=== PATIENT | female | born 1940 | race Caucasian/White ===

== ENCOUNTER 2017-09-12 11:16 | Emergency (ER) | payer OTHER ==
[~2017-09-12] VITALS: Ht 162.6 cm; Wt 72.6 kg
[~2017-09-12 11:16] MED LIST: ALIGN4 MG PO; ALLERGY RELIEF10 M3 PO; ASPIRIN325; AZITHROMYCIN 2250 MG PO; BREO ELLIPTA 11 EACH IH; CLARITIN10 M2 PO; DEXILANT60 MG PO; DILTIAZEM ER120 M1 PO; FORADIL 1212 MCG/KI1 INH; HYDROCHLOROTHIA25 M1 PO; LEVAQUIN 500 M500 M2 PO; MEDROLDOSEPACK PO; OMEPRAZOLE 20 M20 MG PO; PEPCID20 MG PO; PREDNISONE 10 M10 MG PO; PREDNISONE50 MG PO; PROTONIX40 M1 PO; SPIRIVA; VENTOLIN HFA 1818 GM INH
[2017-09-12] MEDS ORDERED: SINGULAIR 10 MG10 M1 PO (11:32)
[2017-09-12] MEDS ORDERED: OMEPRAZOLE 20 M20 MG PO (11:32)
[2017-09-12 12:03] LABS: ABSOLUTE BASOPHILS 0.1 thou/uL (0.0-0.2); ABSOLUTE MONOCYTES 0.8 thou/uL (0.0-1.2); ABSOLUTE NEUTROPHILS 7.7 thou/uL (1.6-8.1); BASOPHILS 1.1 %; EOSINOPHILS 0.5 %; HEMOGLOBIN 13.2 gm/dL (12.0-15.0); LYMPHOCYTES 10.6 %; MCH 28.1 pg (26.0-34.0); MCV 85.4 fL (80.0-100.0); MONOCYTES 7.9 %; NUCLEATED RBCS 0 /100WBC; PLATELET COUNT* 248 thou/uL (150-400); POLYS 79.9 %; RBC 4.68 mil/uL (4.20-5.00); RDW-CV 15.1 % (10.5-14.5); WBC 9.6 thou/uL (4.0-11.0)
[2017-09-12 12:10] LABS: ANION GAP 8 mmol/L (7-16); BUN 6 mg/dL (7-18); CALCIUM 8.6 mg/dL (8.5-10.1); CHLORIDE 102 mmol/L (98-107); CO2 28 mmol/L (21-32); CREATININE 0.8 mg/dL (0.6-1.3); GLUCOSE 136 mg/dL (70-99); SODIUM 138 mmol/L (136-145)
[2017-09-12 12:12] LABS: INFLUENZA A ANTIGEN None Detected (None Detect); INFLUENZA B ANTIGEN None Detected (None Detect)
[2017-09-12 12:16] LABS: ALKALINE PHOSPHATASE 150 U/L (46-116); LIPASE 64 U/L (73-393); SGOT 22 U/L (15-37); SGPT 27 U/L (30-65); TOTAL BILIRUBIN 0.6 mg/dL (<0.1-1.0); TROPONIN-I LEVEL <0.06 ng/mL (<0.06)
[2017-09-12] MEDS ORDERED: ZPAK PO (14:52)
[2017-09-12] MEDS ORDERED: PHENERGAN 25 MG25 M1 PO (14:57)
[2017-09-12 15:01] VITALS: BP 126/77
--- NOTE | 2017-09-12 15:26 | EKG ---
[place] [address] ELECTROCARDIOGRAM REPORT Name: MARIA R KEITA Room: [facility]#: [id number] Admission: 09/12/17 Attend Phys: Discharge: 09/12/17 Date of : 42 Report #: [id number] THIS REPORT FOR: //name// [facility] ED Test Date: 2017-09-12 Test Time: 11:53:12 Pat Name: MARIA R KEITA Department: Room: Gender: F Pulper: BRENDA Fabian : 1940 Requested By: La Nena Keane Order Number: [id number] MD: Dean Herndon Measurements Intervals [place] Rate: 104 P: 101 NV: 205 QRS: -7 QRSD: 127 T: 99 QT: 360 QTc: 474 Interpretive Statements Sinus tachycardia with irregular rate previous anterior infarction nonspecific intraventricular conduction defect nonspecific t wave changes Compared to ECG 04/22/2014 21:09:07 Ventricular premature complex(es) no longer present Electronically Signed On 09-12-2017 15:26:35 APARTMENT MANAGER by Dean Herndon [email or web address] <ELECTRONICALLY SIGNED> By: Dean Herndon MD, [facility] 09/12/17 1526 1153 1153 Dean Herndon MD, [facility] /EPI
== END 2017-09-12 15:02 | disposition home or self-care (01) ==
LOC: M.ERS 11:16
PROVIDERS: Nurse Practitioner Family
DX: R19.7 Diarrhea, unspecified (principal); J06.9 Acute upper respiratory infection, unspecified; B34.9 Viral infection, unspecified; K21.9 Gastro-esophageal reflux disease without esophagitis; J44.9 Chronic obstructive pulmonary disease, unspecified; Z90.49 Acquired absence of other specified parts of digestive tract; Z98.890 Other specified postprocedural states; Z91.041 Radiographic dye allergy status; Z88.8 Allergy status to other drugs, medicaments and biological substances

== ENCOUNTER → 2018-09-12 | Outpatient (CLI) | payer OTHER ==
[~2018-09-12] MED LIST changes: +BREO ELLIPTA 21 EACH INH; +DALIRESP250 MCG PO; +IPRAT-ALBUT 0.5-3 ML INH; +IRON325 PO; +PHENERGAN 25 MG25 M1 PO; +PLAVIX 75 MG TA75 M1 PO; +PULMICORT0.5 MG/22 INH; +SINGULAIR 10 MG10 M1 PO; +SYMBICORT160 MCG/4. INH; +VERAPAMIL E.R240 M1 PO; +ZETIA10 MG PO; +ZPAK PO
[2018-09-12 12:12] LABS: ABSOLUTE BASOPHILS 0.1 thou/uL (0.0-0.2); ABSOLUTE LYMPHOCYTES 1.2 thou/uL (0.8-5.3); ABSOLUTE MONOCYTES 0.4 thou/uL (0.0-1.2); ABSOLUTE NEUTROPHILS 6.3 thou/uL (1.6-8.1); BASOPHILS 1.2 %; EOSINOPHILS 0.5 %; HEMATOCRIT 37.1 % (37.0-47.0); HEMOGLOBIN 11.4 gm/dL (12.0-15.0); LYMPHOCYTES 15.1 %; MCH 23.1 pg (26.0-34.0); MCHC 30.7 g/dL (28.0-37.0); MCV 75.3 fL (80.0-100.0); MONOCYTES 5.5 %; MPV 7.1 fl. (7.2-11.1); NUCLEATED RBCS 0 /100WBC; PLATELET COUNT* 461 thou/uL (150-400); POLYS 77.7 %; RBC 4.92 mil/uL (4.20-5.00); RDW-CV 30.3 % (10.5-14.5); WBC 8.1 thou/uL (4.0-11.0)
[2018-09-12 12:45] LABS: PLATELET ESTIMATE INCREASED
[2018-09-12 12:49] LABS: ANISOCYTOSIS 1+; HYPOCHROMASIA 1+; MICROCYTES Occasional; POIKILOCYTOSIS 1+
== END ==
LOC: M.LAB 11:42
PROVIDERS: Internal Medicine Gastroenterology
DX: D64.9 Anemia, unspecified (principal)

== ENCOUNTER 2018-09-16 12:48 | Inpatient (IN) | payer OTHER ==
[~2018-09-16] VITALS: Ht 160 cm; Wt 72.6 kg
--- NOTE | ~2018-09-16 | PROC ---
[address] [address] PROCEDURE REPORT Name: MARIA R KEITA Room: [address] IN .R.#: [id number] Admission: 09/16/18 Attend Phys: Ancelmo Starkey MD Discharge: 09/19/18 Date of : 42 Report #: [id number] THIS REPORT FOR: //name// For GI report, please see the Provation report in Perceptive 7 content. By: 0648Medical Records Staff DANNIE /ANT
[~2018-09-16 12:48] MED LIST changes: -BREO ELLIPTA 21 EACH INH; -DALIRESP250 MCG PO; -IPRAT-ALBUT 0.5-3 ML INH; -IRON325 PO; +OMEPRAZOLE 20 M20 M1 PO; -PLAVIX 75 MG TA75 M1 PO; -PULMICORT0.5 MG/22 INH; -SYMBICORT160 MCG/4. INH; -VERAPAMIL E.R240 M1 PO; -ZETIA10 MG PO
[2018-09-16 12:51] VITALS: BP 91/56
[2018-09-16] MEDS ORDERED: BREO ELLIPTA 21 EACH INH (12:56)
[2018-09-16] MEDS ORDERED: SYMBICORT160 MCG/4. INH (12:57)
[2018-09-16] MEDS ORDERED: IRON325 PO (12:58)
[2018-09-16] MEDS ORDERED: DALIRESP250 MCG PO (12:58)
[2018-09-16] MEDS ORDERED: ZETIA10 MG PO (12:58)
[2018-09-16] MEDS ORDERED: PLAVIX 75 MG TA75 M1 PO (12:58)
[2018-09-16] MEDS ORDERED: IPRAT-ALBUT 0.5-3 ML INH (12:59)
[2018-09-16] MEDS ORDERED: PULMICORT0.5 MG/22 INH (12:59)
[2018-09-16 13:11] LABS: HEMATOCRIT 39.1 % (37.0-47.0); HEMOGLOBIN 11.9 gm/dL (12.0-15.0); MCH 23.7 pg (26.0-34.0); MCHC 30.6 g/dL (28.0-37.0); MCV 77.4 fL (80.0-100.0); MPV 7.5 fl. (7.2-11.1); NUCLEATED RBCS 0 /100WBC; PLATELET COUNT* 420 thou/uL (150-400); RBC 5.05 mil/uL (4.20-5.00); RDW-CV 31.2 % (10.5-14.5); WBC 9.8 thou/uL (4.0-11.0)
[2018-09-16 13:21] LABS: APTT 24.6 Seconds (25.0-31.3); PROTIME 10.7 Seconds (9.20-11.50)
[2018-09-16 13:25] LABS: ANION GAP 11 mmol/L (7-16); BUN 13 mg/dL (7-18); CHLORIDE 103 mmol/L (98-107); CO2 27 mmol/L (21-32); GLUCOSE 117 mg/dL (70-99); POTASSIUM 3.6 mmol/L (3.5-5.1); SODIUM 141 mmol/L (136-145); TROPONIN-I LEVEL <0.06 ng/mL (<0.06)
[2018-09-16 13:33] LABS: ALBUMIN 3.2 g/dL (3.4-5.0); ALKALINE PHOSPHATASE 149 U/L (46-116); NT-PRO BRAIN NAT PEPTIDE 481 pg/mL (<300); SGOT 38 U/L (15-37); SGPT 29 U/L (30-65); TOTAL BILIRUBIN 0.2 mg/dL (<0.1-1.0); TOTAL PROTEIN 7.4 g/dL (6.4-8.2)
[2018-09-16 13:39] LABS: ABSOLUTE BASOPHILS 0.2 thou/uL (0.0-0.2); ABSOLUTE LYMPHOCYTES 1.2 thou/uL (0.8-5.3); ABSOLUTE MONOCYTES 0.2 thou/uL (0.0-1.2); ABSOLUTE NEUTROPHILS 8.2 thou/uL (1.6-8.1); PLATELET ESTIMATE ADEQUATE
[2018-09-16 13:40] LABS: ANISOCYTOSIS 2+; HYPOCHROMASIA 1+; MICROCYTES 2+
--- NOTE | 2018-09-16 15:17 | EKG ---
[place] [address] ELECTROCARDIOGRAM REPORT Name: MARIA R KEITA Room: [facility]#: [id number] Admission: 09/16/18 Attend Phys: Discharge: Date of : 42 Report #: [id number] THIS REPORT FOR: //name// [facility] Test Date: 2018-09-16 Test Time: 12:58:10 Pat Name: MARIA R KEITA Department: Room: Gender: F Adjuster Arbitrator: : 1940 Requested By: Ambrose Allen Order Number: [id number] MD: Dean Herndon Measurements Intervals [place] Rate: 87 P: 84 VT: 183 QRS: -11 QRSD: 138 T: 109 QT: 422 QTc: 508 Interpretive Statements Sinus rhythm Left bundle branch block Baseline wander in lead(s) II,III,aVF Compared to ECG 09/12/2017 11:53:12 Sinus tachycardia no longer present Electronically Signed On 09-16-2018 15:17:16 CDT by Dean Herndon [email or web address] <ELECTRONICALLY SIGNED> By: Dean Herndon MD, [facility] 09/16/18 1517 1258 1258 Dean Herndon MD, [facility] /EPI
[2018-09-16 20:19] VITALS: BP 174/51
[2018-09-16 20:47] VITALS: BP 158/62
[2018-09-17] VITALS: BP 129/46
[2018-09-17 04:00] VITALS: BP 115/49
[2018-09-17 05:02] LABS: ABSOLUTE BASOPHILS 0.1 thou/uL (0.0-0.2); ABSOLUTE EOSINOPHILS 0.2 thou/uL (0.0-0.7); ABSOLUTE LYMPHOCYTES 1.5 thou/uL (0.8-5.3); ABSOLUTE MONOCYTES 0.5 thou/uL (0.0-1.2); ABSOLUTE NEUTROPHILS 3.4 thou/uL (1.6-8.1); HEMOGLOBIN 10.4 gm/dL (12.0-15.0); LYMPHOCYTES 26.4 %; MCH 24.2 pg (26.0-34.0); MCHC 31.7 g/dL (28.0-37.0); MCV 76.3 fL (80.0-100.0); MONOCYTES 9.1 %; MPV 7.4 fl. (7.2-11.1); NUCLEATED RBCS 0 /100WBC; POLYS 60.5 %; RBC 4.32 mil/uL (4.20-5.00); WBC 5.6 thou/uL (4.0-11.0)
[2018-09-17 05:29] LABS: PLATELET COUNT* 341 thou/uL (150-400)
[2018-09-17 05:46] LABS: CALCIUM 8.2 mg/dL (8.5-10.1); CREATININE 0.8 mg/dL (0.6-1.3); POTASSIUM 4.1 mmol/L (3.5-5.1)
[2018-09-17 07:21] LABS: HYPOCHROMASIA 1+; MICROCYTES 1+; PLATELET ESTIMATE ADEQUATE
[2018-09-17 07:22] LABS: ANISOCYTOSIS 1+; POIKILOCYTOSIS 1+; TARGET CELLS Occasional
[2018-09-17 07:46] VITALS: BP 127/50
[2018-09-17 12:23] VITALS: BP 138/55
[2018-09-17 17:08] VITALS: BP 114/80
[2018-09-17] MEDS ORDERED: VERAPAMIL E.R240 M1 PO (18:26)
[2018-09-17 19:30] VITALS: BP 144/60
[2018-09-18] VITALS (9 sets, daily range): BP systolic 113–154; BP diastolic 54–88
[2018-09-18 05:28] LABS: MCH 23.9 pg (26.0-34.0); MPV 7.6 fl. (7.2-11.1); NUCLEATED RBCS 0 /100WBC; WBC 5.2 thou/uL (4.0-11.0)
[2018-09-18 05:30] LABS: ABSOLUTE EOSINOPHILS 0.2 thou/uL (0.0-0.7); ABSOLUTE LYMPHOCYTES 1.5 thou/uL (0.8-5.3); ABSOLUTE MONOCYTES 0.5 thou/uL (0.0-1.2); BASOPHILS 0.7 %; HEMATOCRIT 32.1 % (37.0-47.0); LYMPHOCYTES 28.1 %; MCV 77.1 fL (80.0-100.0); MONOCYTES 8.8 %; PLATELET COUNT* 343 thou/uL (150-400); POLYS 58.4 %; RBC 4.16 mil/uL (4.20-5.00); RDW-CV 30.7 % (10.5-14.5)
[2018-09-18 06:01] LABS: PLATELET ESTIMATE ADEQUATE
[2018-09-18 06:02] LABS: ANISOCYTOSIS 1+; HYPOCHROMASIA 1+; MICROCYTES 1+; POIKILOCYTOSIS 1+
[2018-09-18 06:09] LABS: ALBUMIN 2.6 g/dL (3.4-5.0); CALCIUM 8.5 mg/dL (8.5-10.1); CREATININE 0.7 mg/dL (0.6-1.3); POTASSIUM 3.5 mmol/L (3.5-5.1); TOTAL BILIRUBIN 0.2 mg/dL (<0.1-1.0)
--- NOTE | 2018-09-18 18:08 | CON ---
[address] [address] CONSULTATION Name: MARIA R KEITA Room: [address] IN .R.#: [id number] Admission: 09/16/18 Attend Phys: Ancelmo Starkey MD Discharge: Date of : 41 Report #: [id number] THIS REPORT FOR: //name// CC: Ancelmo Love HISTORY OF PRESENT ILLNESS: This is a pleasant 78-year-old female with past medical history significant for peripheral vascular disease and subclavian stenosis, who is presenting for evaluation of left arm pain. The patient reports that she noted acute onset left arm pain and associated nausea and abdominal distention. The patient reports the pain started in the shoulder and radiates outwards, towards the head. The patient also reports intermittent shortness of breath and chest discomfort. The patient has a history of known subclavian stenosis with stent placement in 04/2018. She was evaluated as an outpatient for intermittent melena and an EGD was performed last week. The patient was recommended to undergo a colonoscopy for which she is scheduled as an outpatient on this , 09/19/2018. The patient continues to report intermittent dark stools, although she denies any theresa hematemesis or hematochezia. The patient's weight has been relatively stable. PAST MEDICAL HISTORY: Peripheral vascular disease, hypertension, hyperlipidemia, and iron deficiency anemia. PAST SURGICAL HISTORY: The patient has a history of cholecystectomy, hysterectomy, right elbow surgery and left subclavian stent placement. FAMILY HISTORY: There is no significant family history of colonic or gastric malignancies. SOCIAL HISTORY: The patient denies smoking, alcohol or recreational drug use. REVIEW OF SYSTEMS: A comprehensive 10-point review of systems is negative except for what was mentioned in the HPI. PHYSICAL EXAMINATION: VITAL SIGNS: Temperature 36.7, pulse rate 97, respirations 18, blood pressure of 114/80. GENERAL: The patient is alert, awake, oriented x 3. HEENT: Pupils are equal, round, reactive to light and accommodation. Mucous membranes are moist. There is no congestion. LUNGS: Clear to auscultation bilaterally. CARDIOVASCULAR: Rate and rhythm regular, S1, S2 present. ABDOMEN: Soft. There is no distention, guarding or rigidity. EXTREMITIES: Warm, well perfused. LABORATORY DATA: Hemoglobin 10.4, hematocrit 33.0, MCV 76.3, platelet count 341, WBC count 5.6. Sodium 142, potassium 4.1, chloride 109, bicarbonate 28, [place] [address] CONSULTATION Name: MARIA R KEITA Room: [address]#: [id number] Admission: 09/16/18 Attend Phys: Ancelmo Starkey MD Discharge: Date of : 41 Report #: [id number] BUN 15, creatinine 0.8. INR 1.0. ASSESSMENT AND PLAN: A pleasant 78-year-old female with past medical history significant for subclavian stenosis status post stenting, on Plavix, who presented initially for outpatient evaluation of melena. The patient had an EGD performed last week and this was unremarkable and therefore, a colonoscopy was recommended. The patient is originally scheduled to have colonoscopy this as outpatient by Dr. Harry. However, since the patient is currently admitted, I will proceed with prepping her and performing a colonoscopy tomorrow. Further recommendations will be based on the results of the colonoscopy. If the colonoscopy is negative, an outpatient capsule endoscopy will be considered for further evaluation of her melena and iron deficiency anemia. <ELECTRONICALLY SIGNED> By: Alberto Frances MD 09/18/18 1808 1918 [id number] Frances MD /nt
[2018-09-19 04:00] VITALS: BP 96/50
[2018-09-19 04:49] LABS: ABSOLUTE BASOPHILS 0.1 thou/uL (0.0-0.2); ABSOLUTE EOSINOPHILS 0.4 thou/uL (0.0-0.7); ABSOLUTE LYMPHOCYTES 1.4 thou/uL (0.8-5.3); ABSOLUTE MONOCYTES 0.6 thou/uL (0.0-1.2); ABSOLUTE NEUTROPHILS 3.6 thou/uL (1.6-8.1); HEMATOCRIT 32.8 % (37.0-47.0); HEMOGLOBIN 10.3 gm/dL (12.0-15.0); LYMPHOCYTES 23.9 %; MCH 24.2 pg (26.0-34.0); MCHC 31.5 g/dL (28.0-37.0); MCV 76.8 fL (80.0-100.0); MONOCYTES 9.3 %; MPV 7.6 fl. (7.2-11.1); NUCLEATED RBCS 0 /100WBC; PLATELET COUNT* 321 thou/uL (150-400); POLYS 59.8 %; RBC 4.27 mil/uL (4.20-5.00); RDW-CV 30.8 % (10.5-14.5)
[2018-09-19 05:04] LABS: CALCIUM 8.6 mg/dL (8.5-10.1); CREATININE 0.6 mg/dL (0.6-1.3); POTASSIUM 3.2 mmol/L (3.5-5.1)
[2018-09-19 05:57] LABS: PLATELET ESTIMATE ADEQUATE
[2018-09-19 05:58] LABS: MICROCYTES 1+
[2018-09-19 05:59] LABS: ANISOCYTOSIS 1+; HYPOCHROMASIA 1+; POIKILOCYTOSIS 1+; POLYCHROMASIA Occasional
[2018-09-19 08:35] VITALS: BP 127/67
[2018-09-19 10:01] VITALS: BP 127/67
[2018-09-19 11:29] VITALS: BP 123/90
--- NOTE | 2018-09-20 13:23 | CON ---
[address] [address] CONSULTATION Name: MARIA R KEITA Room: [address] IN .R.#: [id number] Admission: 09/16/18 Attend Phys: Ancelmo Starkey MD Discharge: 09/19/18 Date of : 42 Report #: [id number] THIS REPORT FOR: //name// CC: Ancelmo Love DO DATE OF SERVICE: 09/18/2018 TYPE OF REPORT: Cardiology consultation. HISTORY OF PRESENT ILLNESS: The patient is a 78-year-old white female who I was asked to see in the hospital today after she had an episode of atrial fibrillation. History was obtained from the patient and her who is present. The patient has an extensive past medical history. Unfortunately, minimum records are available. She had a previous history of an irregular heartbeat in 2011 and apparently underwent radiofrequency ablation at [facility]. She has been followed by a ethylene compressor operator at [facility] since that time. Previous heart catheterization apparently showed no significant coronary artery disease. She apparently had an episode of atrial fibrillation in January and was placed on verapamil. She apparently had a stress test at that time and was told there was no evidence of ischemia. Recently, she was noted to be anemic. She had an EGD last week that showed no significant bleeding. She underwent a colonoscopy earlier today showed no significant bleeding. In April, she was found to have left subclavian stenosis and had a stent placed in her left arm. The patient notes that she was admitted to [facility] 2 days ago after she complained of left arm was hurting. She is found to have only mild stenosis of the stent. Last night, she was lying in bed. She apparently went in atrial fibrillation, developed some chest tightness and shortness of breath. She converted to sinus rhythm. I was asked to see her for further evaluation and treatment. She is not very active and notes some exertional dyspnea, but no significant palpitation or syncope. PAST MEDICAL HISTORY: She has had a previous cholecystectomy, appendectomy and hysterectomy. She has a history of hypertension and hyperlipidemia. MEDICATIONS: Consists of omeprazole, loratadine, Symbicort, Ventolin, Plavix, Zetia, verapamil, iron supplements and albuterol inhaler. She has previous intolerance to Cardizem, Bystolic, Lipitor, lidocaine, losartan and diltiazem. FAMILY HISTORY: Her mother and she is only 39. SOCIAL HISTORY: She is . She and her live in [place]. Quit smoking in 2004. No alcohol abuse. REVIEW OF SYSTEMS: She had no history of stroke. She [place] [address] CONSULTATION Name: MARIA R KEITA Room: [address] IN [facility]#: [id number] Admission: 09/16/18 Attend Phys: Ancelmo Starkey MD Discharge: 09/19/18 Date of : 42 Report #: [id number] diagnosed with lung cancer in the past, treated by the radiation therapy and chemotherapy. No history of liver disease. No psychiatric illness. No chronic skin condition. PHYSICAL EXAMINATION: GENERAL: Revealed elderly female lying in bed. She appeared in no distress. VITAL SIGNS: She had a blood pressure of 130/70, pulse is 80 and she is afebrile. HEENT: She was anicteric. Conjunctiva pink. Mucous members moist. NECK: Veins do not appear distended. Right carotid bruit is heard. NECK: Supple. CHEST: Clear to auscultation. CARDIOVASCULAR: Regular rhythm. ABDOMEN: Soft. EXTREMITIES: Had no edema. Dorsalis pedis pulse 1+ bilaterally. SKIN: Cool and dry. NEUROLOGICAL: Nonfocal. LYMPHATIC: No adenopathy. MUSCULOSKELETAL: No joint effusion. RADIOLOGICAL DATA: Her ECG on admission showed a sinus rhythm with a left bundle-branch block. Her workup, she had portable chest x-ray that showed evidence of a left suprahilar mass that was unchanged from September 2017. She had ultrasound of the upper extremity on the left that showed no DVT. She had a VQ scan of the lungs consistent with COPD, felt to be low probability for pulmonary embolus. She had an arterial study done of her arms, which shows stent in the left subclavian artery. Moderate amount in-stent restenosis noted. LABORATORY DATA: Her lab work: Sodium 142, potassium 3.5 and creatinine 0.7. Troponin this morning 0.06. White blood cell count 5.2 and hemoglobin 10.0. IMPRESSION AND RECOMMENDATIONS: 1. Chest pain. No evidence of acute myocardial infarction. The patient actually had a stress test last summer. I will attempt to get the old records. We would not recommend repeat stress testing at this time. 2. Paroxysmal atrial fibrillation. The patient is on a calcium latanya. She cannot tolerate a beta latanya in the past. If she has recurrent episodes, we would consider antiarrhythmic therapy and anticoagulation. 3. Previous stent in the left subclavian artery. The patient is on Plavix. 4. Hypertension. The patient is on a calcium latanya. 5. Chronic obstructive pulmonary disease. 6. History of lung cancer. [address] [place] [address] CONSULTATION Name: MARIA R KEITA Room: [address]#: [id number] Admission: 09/16/18 Attend Phys: Ancelmo Starkey MD Discharge: 09/19/18 Date of : 42 Report #: [id number] 7. Hyperlipidemia. The patient is on Zetia. She cannot tolerate statin drugs. 8. History of lung cancer. <ELECTRONICALLY SIGNED> By: Dean Herndon MD, FACC 09/20/18 1323 1446 0535Dadaniel Herndon MD, FACC /nt
== END 2018-09-19 12:17 | disposition home or self-care (01) | DRG 299 ==
LOC: M.ERS 12:48 → M.2W 15:59 → M.TBA-ER 15:59 → M.2W 20:35
PROVIDERS: Nurse Practitioner Psychiatric/Mental Health; ADMIT Internal Medicine
PROC: 0DJD8ZZ Inspection of Lower Intestinal Tract, Via Natural or Artificial Opening Endoscopic (ICD-10-PCS; principal; 2018-09-18)
DX: I70.218 Atherosclerosis of native arteries of extremities with intermittent claudication, other extremity (principal); K57.31 Diverticulosis of large intestine without perforation or abscess with bleeding; E44.1 Mild protein-calorie malnutrition; C34.12 Malignant neoplasm of upper lobe, left bronchus or lung; I70.8 Atherosclerosis of other arteries; K21.9 Gastro-esophageal reflux disease without esophagitis; E78.5 Hyperlipidemia, unspecified; I10 Essential (primary) hypertension; I48.0 Paroxysmal atrial fibrillation; J44.9 Chronic obstructive pulmonary disease, unspecified; Z95.820 Peripheral vascular angioplasty status with implants and grafts; Z90.49 Acquired absence of other specified parts of digestive tract; Z88.8 Allergy status to other drugs, medicaments and biological substances; Z91.041 Radiographic dye allergy status; Z79.82 Long term (current) use of aspirin; Z79.899 Other long term (current) drug therapy; Z68.28 Body mass index [BMI] 28.0-28.9, adult

== ENCOUNTER → 2019-12-08 | Outpatient (CLI) | payer OTHER ==
[~2019-12-08] MED LIST changes: +BREO ELLIPTA 21 EACH INH; +DALIRESP250 MCG PO; +IPRAT-ALBUT 0.5-3 ML INH; +IRON325 PO; +PLAVIX 75 MG TA75 M1 PO; +PULMICORT0.5 MG/22 INH; +SYMBICORT160 MCG/4. INH; +VERAPAMIL E.R240 M1 PO; +ZETIA10 MG PO
== END ==
LOC: M.CT 17:00
DX: S09.90XA Unspecified injury of head, initial encounter (principal); M54.9 Dorsalgia, unspecified; I63.9 Cerebral infarction, unspecified; M85.88 Other specified disorders of bone density and structure, other site; M47.814 Spondylosis without myelopathy or radiculopathy, thoracic region; M16.0 Bilateral primary osteoarthritis of hip; M47.812 Spondylosis without myelopathy or radiculopathy, cervical region; X58.XXXA Exposure to other specified factors, initial encounter; W19.XXXA Unspecified fall, initial encounter; Y92.89 Other specified places as the place of occurrence of the external cause; Y99.8 Other external cause status

== ENCOUNTER 2021-02-02 10:27 | Inpatient (IN) | payer OTHER ==
[~2021-02-02] VITALS: Ht 160 cm; Wt 68.5 kg
[2021-02-02 10:35] VITALS: BP 155/84
[2021-02-02 11:02] LABS: ABSOLUTE BASOPHILS 0.1 thou/uL (0.0-0.2); ABSOLUTE MONOCYTES 0.6 thou/uL (0.0-1.2); ABSOLUTE NEUTROPHILS 6.6 thou/uL (1.6-8.1); EOSINOPHILS 0.3 %; HEMATOCRIT 38.7 % (37.0-47.0); HEMOGLOBIN 12.6 gm/dL (12.0-15.0); LYMPHOCYTES 21.1 %; MCH 25.6 pg (26.0-34.0); MCHC 32.5 g/dL (28.0-37.0); MCV 78.7 fL (80.0-100.0); MONOCYTES 6.4 %; MPV 7.2 fl. (7.2-11.1); NUCLEATED RBCS 0 /100WBC; PLATELET COUNT* 380 thou/uL (150-400); POLYS 71.2 %; RBC 4.91 mil/uL (4.20-5.00); RDW-CV 17.2 % (10.5-14.5); WBC 9.3 thou/uL (4.0-11.0)
[2021-02-02 11:13] LABS: CALCIUM 8.6 mg/dL (8.5-10.1); POTASSIUM 3.8 mmol/L (3.5-5.1)
[2021-02-02 11:24] LABS: ALBUMIN 3.4 g/dL (3.4-5.0); MAGNESIUM 2.2 mg/dL (1.8-2.4); TOTAL BILIRUBIN 0.3 mg/dL (<0.1-1.0); TOTAL PROTEIN 7.6 g/dL (6.4-8.2)
[2021-02-02 17:03] VITALS: BP 135/57
[2021-02-02 17:04] VITALS: BP 135/57
[2021-02-02 17:23] VITALS: BP 132/60
--- NOTE | 2021-02-03 12:46 | EKG ---
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 Instructor In Economics: DSL : 1940 Requested By: Ancelmo Starkey Order Number: [id number] Reading MD: Hector Mercado Measurements Intervals [place] Rate: 102 P: 93 ND: 188 QRS: -5 QRSD: 124 T: 140 QT: 368 QTc: 480 Interpretive Statements Sinus tachycardia Ventricular premature complex Left bundle branch block Baseline wander in lead(s) II,III,aVR,aVL,aVF,V1,V2,V3,V4,V5,V6 Compared to ECG 09/16/2018 12:58:10 Ventricular premature complex(es) now present Sinus rate has increased Electronically Signed On 02-03-2021 12:45:55 CDT by Hector Mercado [email or web address] <ELECTRONICALLY SIGNED> By: Hector Mercado MD, [facility] 02/03/21 1245 1032 1032 Hector Mercado MD, [facility] /EPI
== END 2021-02-02 17:22 | disposition home or self-care (01) | DRG 313 ==
LOC: M.ERS 10:27 → M.TBA-ER 12:46
PROVIDERS: Emergency Medicine Emergency Medical Services; ADMIT Internal Medicine; ATTEND Internal Medicine
DX: R07.89 Other chest pain (principal); J44.9 Chronic obstructive pulmonary disease, unspecified; I10 Essential (primary) hypertension; E78.5 Hyperlipidemia, unspecified; K21.9 Gastro-esophageal reflux disease without esophagitis; Z20.822 Contact with and (suspected) exposure to COVID-19; Z85.118 Personal history of other malignant neoplasm of bronchus and lung; Z90.49 Acquired absence of other specified parts of digestive tract; Z79.899 Other long term (current) drug therapy; Z88.8 Allergy status to other drugs, medicaments and biological substances; Z91.041 Radiographic dye allergy status

== ENCOUNTER 2021-02-04 09:48 | Observation (INO) | payer OTHER ==
[~2021-02-04] VITALS: Ht 160 cm; Wt 67.6 kg
[2021-02-04] VITALS (11 sets, daily range): BP systolic 106–150; BP diastolic 38–98
[2021-02-04 10:25] LABS: ABSOLUTE EOSINOPHILS 0.1 thou/uL (0.0-0.7); ABSOLUTE LYMPHOCYTES 1.8 thou/uL (0.8-5.3); ABSOLUTE MONOCYTES 0.5 thou/uL (0.0-1.2); ABSOLUTE NEUTROPHILS 5.5 thou/uL (1.6-8.1); BASOPHILS 0.3 %; EOSINOPHILS 0.7 %; HEMATOCRIT 37.4 % (37.0-47.0); LYMPHOCYTES 23.2 %; MCH 25.4 pg (26.0-34.0); MCHC 32.2 g/dL (28.0-37.0); MONOCYTES 6.9 %; MPV 7.3 fl. (7.2-11.1); NUCLEATED RBCS 0 /100WBC; PLATELET COUNT* 354 thou/uL (150-400); POLYS 68.9 %; RBC 4.73 mil/uL (4.20-5.00); RDW-CV 17.4 % (10.5-14.5); WBC 7.9 thou/uL (4.0-11.0)
[2021-02-04 10:34] LABS: CALCIUM 8.5 mg/dL (8.5-10.1); CREATININE 0.9 mg/dL (0.6-1.3); POTASSIUM 4.2 mmol/L (3.5-5.1)
[2021-02-04 10:44] LABS: ALBUMIN 3.3 g/dL (3.4-5.0); MAGNESIUM 2.1 mg/dL (1.8-2.4); TOTAL BILIRUBIN 0.3 mg/dL (<0.1-1.0); TOTAL PROTEIN 7.4 g/dL (6.4-8.2)
--- NOTE | 2021-02-04 12:26 | NUR ---
[facility] CLARK PLACED IV IN RT AC.
[2021-02-05 01:31] VITALS: BP 139/60
[2021-02-05 04:36] LABS: HEMATOCRIT 32.9 % (37.0-47.0); HEMOGLOBIN 10.7 gm/dL (12.0-15.0); MCH 25.6 pg (26.0-34.0); MCHC 32.5 g/dL (28.0-37.0); MCV 78.9 fL (80.0-100.0); MPV 7.3 fl. (7.2-11.1); RBC 4.17 mil/uL (4.20-5.00); RDW-CV 17.3 % (10.5-14.5); WBC 8.6 thou/uL (4.0-11.0)
[2021-02-05 04:50] LABS: BUN 15 mg/dL (7-18); CHLORIDE 108 mmol/L (98-107); POTASSIUM 3.8 mmol/L (3.5-5.1); SGPT 16 U/L (30-65); TOTAL BILIRUBIN 0.2 mg/dL (<0.1-1.0); VLDL 9 mg/dL (<40)
[2021-02-05 04:52] LABS: ALBUMIN 2.7 g/dL (3.4-5.0); ALKALINE PHOSPHATASE 161 U/L (46-116); ANION GAP 9 mmol/L (7-16); CALCIUM 8.2 mg/dL (8.5-10.1); CHOLESTEROL 176 mg/dL (<200); CO2 26 mmol/L (21-32); CREATININE 0.8 mg/dL (0.6-1.3); GLUCOSE 85 mg/dL (70-99); HDL CHOLESTEROL 47 mg/dL (>40); LDL CHOLESTEROL 120 mg/dL (<100); SGOT 16 U/L (15-37); SODIUM 143 mmol/L (136-145); TC:HDL 3.7 Ratio (Not establshd); TOTAL PROTEIN 6.3 g/dL (6.4-8.2); TRIGLYCERIDE 47 mg/dL (<150); TROPONIN-I LEVEL 0.13 ng/mL (<0.06)
[2021-02-05 04:53] LABS: SERUM ASSESSMENT Clear
[2021-02-05 06:21] VITALS: BP 105/51
[2021-02-05 08:10] VITALS: BP 131/52
[2021-02-05] MEDS ORDERED: BAYER CHEWABLE81 MG PO (10:56)
--- NOTE | 2021-02-05 11:40 | CARD ---
[address] [address] CARDIAC CATH REPORT Name: MARIA R KEITA Room: [address] Anuj Hayes#: [id number] Admission: 02/04/21 Attend Phys: Hector Mercado MD, Discharge: Date of : 41 Report #: [id number] THIS REPORT FOR: cc: James Frances Adam J DO Holkins,Hector Galaviz MD [facility] ~ APPROVED REPORT Study performed: 02/04/2021 16:52:43 Patient Details Patient Status: ED Room #: The patient is a 80 year-old female Event Personnel James Madsen RTR Monitor, Luis Fernando Christopher Parks, Tina RN RN, Hector Mercado Insurance Verifier Procedures Performed Left Heart Cath w/or w/o Coronaries [id number] [facility] IS[facility] Place w/wo Plasty Single RCA [id number] Hemostasis w/ Angioseal Indication Unstable angina Risk Factors Peripheral Vascular Disease, Hypercholesterolemia Admission/Lab Medications/Medications given during procedure Lidocaine Subcut 20 ml, Fentanyl IV 25 mcg, Midazolam (Versed) IV 2 mg, Angiomax IV 9 ml, Angiomax IV 21 ml per hr, Fentanyl IV 50 mcg, Plavix PO 300 mg, Aspirin PO 81 mg, Angiomax IV 3 ml Procedure Narrative The patient was brought urgently to the Cardiac Catheterization Laboratory and was prepped and draped in a sterile manner. The right femoral was infiltrated with 2% Lidocaine subcutaneous anesthesia. IV conscious sedation was used throughout procedure with appropriate monitoring and was performed in the presence of a registered nurse who was an independent trained observer other than the physician performing the procedure. A Hyde 6 FR sheath was inserted into the right femoral artery. Coronary angiography was performed using coronary diagnostic catheters. The [place] [address] CARDIAC CATH REPORT Name: MARIA R KEITA Room: [address] Anuj Hayes#: [id number] Admission: 02/04/21 Attend Phys: Hector Mercado MD, Discharge: Date of : 41 Report #: [id number] and visualized with a Diagnostic 3DRC 5Fr catheter. The left coronary system was accessed and visualized with a Diagnostic JL4 6Fr catheter. The left ventricle was accessed and visualized with a DiagnosticPigtail 6Fr catheter. Left ventricular/Aortic Valve gradient assessed via catheter pullback. Pre-demployment femoral angiogram was performed . Closure device was deployed with a 6 Fr Angioseal. The patient tolerated the procedure well and there were no complications associated with the procedure. There was no hematoma. Intraoperative Conscious Sedation Sedation start time: 170 Case end Time: 1733 Fentanyl 75 mcg Versed 2 mg Fluoro Time: 10.4 minutes Dose: DAP 94464 cGycm2 778.40 mGy Contrast Type and Amount: Visipaque 100 ml Diagnostic Cath Left Main 0% narrowing LAD 20% ostial narrowing Circumflex Prominent though nondominant vessel with 0% narrowing Right Coronary Dominant vessel with 90% focal mid vessel stenosis Left Ventriculography Left Ventriculography was not performed. Hemodynamics The aortic pressure is 179/65 mmHg with a mean of 76 mmHg. The left ventricular pressure is 161/11 mmHg with a mean of mmHg. The left ventricular end diastolic pressure is 19 mmHg. PCI Technique Lesion Anticoagulation was achieved with Angiomax. 9mL Percutaneous coronary intervention was performed on the mid right coronary artery. The lesion stenosis prior to intervention was 90% with DALLIN 3 flow. A 6F 3DRC Guide Catheter was used to engage the Right ostium. A IG: BMW 190cm Interventional Guidewire was used to cross the lesion. BALLOON DILATION A Balloon catheter Trek RX 2.5 X 8 was inserted and inflated up to 12.00atm for 13seconds. Additional Inflation: 15.00[place] [address] CARDIAC CATH REPORT Name: KRISTAL KEITAGEOVANY Swan Room: [address]#: [id number] Admission: 02/04/21 Attend Phys: Hector Mercado MD, Discharge: Date of : 41 Report #: [id number] 9seconds. STENT DEPLOYMENT A drug-eluting stent Onur RX Stent 2.5X18mm was inserted and inflated up to 12.00atm for 7seconds. Additional Inflation: 17.00atm for 7seconds. Additional Inflation: 20.00atm for 8seconds. Final angiography reveals 0 % stenosis with DALLIN 3 flow. Conclusion 1. Significant coronary artery disease characterized by the following: A 90% focal mid right coronary stenosis B 20% ostial LAD narrowing 2. Modest elevation of left ventricular end-diastolic pressure at rest 3. Successful PCI with deployment of a drug-eluting stent at the site of 90% mid right coronary artery stenosis with 0% residual narrowing and DALLIN-3 flow to the distal vessel Recommendations Cardiac Risk Reduction Program Medications Administered Aspirin (any) Clopidogrel Diagnostic Cath Approved by: Hector Mercado MD Date/Time: 02/05/2021 11:39:04 <ELECTRONICALLY SIGNED> By: Hector Mercado MD, [facility] 02/05/21 1139 1139 1139Hector Mercado MD, FAC /INF
--- NOTE | 2021-02-05 11:59 | H ---
[place] [address] HISTORY AND PHYSICAL Name: MARIA R KEITA Room: [address] Abigail#: [id number] Admission: 02/04/21 Attend Phys: Hector Mercado MD, Discharge: Date of : 41 Report #: [id number] THIS REPORT FOR: cc: James Frances Adam J DO Holkins,Hector Galaviz MD [facility] ~ ADMIT DATE: 02/04/2021 HISTORY OF PRESENT ILLNESS: The patient is a pleasant 80-year-old female with known peripheral vascular disease. She was evaluated in the [facility] 2 days ago for chest pain, which was felt to be nonischemic. She was again evaluated yesterday by Dr. Madison in our office and he felt there were characteristics of the pain suggestive of angina including the pressure like or central chest sensation. On my questioning, she notes that the pain is exacerbated by exertion of moderate magnitude. At rest, she is quite comfortable. There have been no protracted bouts of pain. It has been at times nitrate responsive. She has no known peripheral vascular disease. Status post left subclavian stenosis, stenting and with modest carotid disease. She also has underlying hypertension and hyperlipidemia. MEDICATIONS: Inhaled albuterol, Pulmicort, Symbicort, clopidogrel 75 mg daily, Zetia 10 mg daily, DuoNeb as needed, Claritin 10 mg daily, omeprazole 40 mg daily, verapamil sustained release 240 mg at bedtime. PAST MEDICAL HISTORY: Remarkable for COPD, non-small cell cancer of the left lung, status post radiation and chemotherapy. SOCIAL HISTORY: Prior cigarette smoking history. She is . PHYSICAL EXAMINATION: GENERAL: Reveals a mildly distressed elderly female. VITAL SIGNS: Blood pressure is 140/70, pulse rate is 64, respirations are 18 per minute. Jugular venous pressure is normal. CHEST: Clear. HEART: Reveals normal first heart sound with a paradoxically split second heart sound and a soft systolic murmur. ABDOMEN: Soft. EXTREMITIES: Without edema with intact femoral, pedal and radial pulses. LABORATORY DATA: Prior EKGs reveal sinus rhythm with left bundle branch block. IMPRESSION: 1. Chest pain, which is at times exertional, described [place] [address] HISTORY AND PHYSICAL Name: MARIA R KEITA Room: [address] Abigail#: [id number] Admission: 02/04/21 Attend Phys: Hector Mercado MD, Discharge: Date of : 42 Report #: [id number] 2. Peripheral vascular disease status post left subclavian stenting. 3. Carotid artery disease. 4. Hypertension. 5. Hyperlipidemia. 6. Chronic obstructive pulmonary disease. 7. Non-small cell carcinoma of the left lung, status post radiation and chemotherapy. RECOMMENDATIONS: Given the aforementioned clinical scenario and the impression as outlined by Dr. Madison, I would strongly consider proceeding with cardiac catheterization to define the presence or absence of significant underlying coronary artery disease. This has been discussed with the patient and her family. CRITICAL CARE TIME: Forty minutes from 1400 to 1440 on 02/05/2020. <ELECTRONICALLY SIGNED> By: Hector Mercado MD, [facility] 02/05/21 1159 1339 1435Jotamara Mercado MD, FACC /nt
--- NOTE | 2021-02-05 12:00 | D ---
[address] [address] DISCHARGE SUMMARY Name: MARIA R KEITA Room: [address] Anuj Hayes#: [id number] Admission: 02/04/21 Attend Phys: Hector Mercado MD, Discharge: Date of : 42 Report #: [id number] THIS REPORT FOR: cc: James Frances Adam J DO Holkins, John M. MD [facility] ~ cc: Mathieu Madison MD [facility] DATE OF DISCHARGE: 02/05/2021 FINAL DISCHARGE DIAGNOSES: 1. Unstable angina. 2. Coronary artery disease. 3. Peripheral vascular disease. 4. Hypertension. 5. Hypercholesterolemia. 6. Status post percutaneous transluminal coronary angioplasty with stenting. PROCEDURES: 02/04/2021 -- left heart catheterization, left ventriculography, selective coronary arteriography, and PCI with deployment of drug-eluting stent in the mid right coronary artery. HOSPITAL COURSE: The patient is a very pleasant 80-year-old female who has noted recent episode of chest discomfort exacerbated by exertion. She notes that the central chest pain, which remits with cessation of activity after several minutes. She has underlying hypertension, hyperlipidemia and obstructive airways disease. In this context, and with Dr. Madison' recommendation, I proceeded with cardiac catheterization on 02/04/2021. That study revealed 90% focal mid right coronary stenosis with a 20% ostial LAD narrowing. There were no significant stenoses in addition to the right coronary stenosis defined as above. In this context, I elected to proceed with PCI, deploying one 2.5 x 18 mm [place] drug-eluting stent deployed at 20 atmospheres with 0% residual narrowing and DALLIN 3 flow to the distal vessel. The patient did well post-procedurally and ambulated in the hallways without difficulty. There was an insignificant increase in troponin I post-procedurally. Remaining labs including renal function parameters and hemoglobin were normal. She was discharged to home on the following medications: Albuterol inhaled as needed p.r.n. dyspnea, loratadine 10 mg daily, omeprazole 20 mg daily, Symbicort 160 mcg inhalation daily, clopidogrel or Plavix 75 mg daily with a 300 mg periprocedural dose having been given, Zetia 10 mg [place] [id number] DISCHARGE SUMMARY Name: KEITAMARIJAMARIA R L [address] [id number] Admission: 02/04/21 Attend Phys: Hector Mercado MD, Discharge: Date of : 42 Report #: [id number] verapamil 240 mg daily. The patient is scheduled to see Dr. Madison in followup in 4 weeks. Therefore, the patient is discharged home in stable condition on the aforementioned medications with followup as described above. <ELECTRONICALLY SIGNED> By: Hector Mercado MD, [facility] 02/05/21 1200 1003 1034Jotamara Mercado MD, [facility] /nt
[2021-02-05 12:03] VITALS: BP 131/52
[2021-02-05 12:15] VITALS: BP 122/43
--- NOTE | 2021-02-05 12:36 | NUR ---
PT ALERT AND ORIENTED UPON DISCHARGE. IV REMOVED. TELE REMOVED. DISCHARGE EDUCATION GIVEN BY RN AND PT DEMONSTRATED HER UNDERSTANDING. PT WAS ESCORTED OUT VIA WHEELCHAIR BY RN AND LEFT HOSPITAL VIA FAMILY VEHICLE.
--- NOTE | 2021-02-07 09:51 | EKG ---
[place] [address] ELECTROCARDIOGRAM REPORT Name: MARIA R KEITA Room: [address] M.R.#: [id number] Admission: 02/04/21 Attend Phys: Peng Tapia Discharge: 02/05/21 Date of : 42 Date of Service: 02/04/21 0950 Report #: [id number] THIS REPORT FOR: //name// [facility] ED Test Date: 2021-02-04 Test Time: 09:50:05 Pat Name: MARIA R KEITA Department: Room: [facility] Gender: F Director Of Recreation Therapy: ANT : 1940 Requested By: Miguel York Order Number: [id number] MD: Dean Herndon Measurements Intervals [place] Rate: 93 P: 71 DE: 195 QRS: -5 QRSD: 126 T: 102 QT: 364 QTc: 453 Interpretive Statements Sinus rhythm Left bundle branch block Baseline wander in lead(s) III Compared to ECG 02/02/2021 10:32:47 Sinus tachycardia no longer present Ventricular premature complex(es) no longer present Electronically Signed On 02-07-2021 9:51:33 CDT by Dean Herndon [email or web address] <ELECTRONICALLY SIGNED> By: Dean Herndon MD, [facility] 02/07/2151 9 9 Dean Herndon MD, [facility] /EPI
== END 2021-02-05 12:30 | disposition home or self-care (01) ==
LOC: M.ERS 09:48 → M.TBA-ER 12:34 → M.2W 18:51
PROVIDERS: Emergency Medicine Emergency Medical Services; ADMIT Internal Medicine; ATTEND Internal Medicine
DX: I25.110 Atherosclerotic heart disease of native coronary artery with unstable angina pectoris (principal); Z20.822 Contact with and (suspected) exposure to COVID-19; E78.00 Pure hypercholesterolemia, unspecified; I10 Essential (primary) hypertension; I73.9 Peripheral vascular disease, unspecified; K21.9 Gastro-esophageal reflux disease without esophagitis; J44.9 Chronic obstructive pulmonary disease, unspecified; I47.1 Supraventricular tachycardia; Z79.82 Long term (current) use of aspirin; Z79.899 Other long term (current) drug therapy; Z85.118 Personal history of other malignant neoplasm of bronchus and lung

== ENCOUNTER 2021-02-21 13:59 | Inpatient (IN) | payer OTHER ==
[~2021-02-21] VITALS: Ht 160 cm; Wt 67.0 kg
--- NOTE | ~2021-02-21 | PROC ---
[address] [address] PROCEDURE REPORT Name: MARIA R KEITA Room: [address] IN .R.#: [id number] Admission: 02/21/21 Attend Phys: Chiquis Joyner Discharge: 03/02/21 Date of : 42 Report #: [id number] THIS REPORT FOR: cc: James Frances Adam J DO [facility],Medical Records Staff ~ For GI report, please see the Provation report in Perceptive 7 content. By: [id number] Records Staff DANNIE /ANT
--- NOTE | ~2021-02-21 | PROC ---
[address] [address] PROCEDURE REPORT Name: MARIA R KEITA Room: [address] IN ..#: [id number] Admission: 02/21/21 Attend Phys: Chiquis Joyner Discharge: Date of : 42 Report #: [id number] THIS REPORT FOR: cc: James Frances Adam J DO [facility],Medical Records Staff ~ For GI report, please see the PRovation report in Perceptive 7 content. By: [id number] Records Staff DANNIE /ANT
--- NOTE | ~2021-02-21 | PROC ---
[address] [address] PROCEDURE REPORT Name: MARIA R KEITA Room: [address] IN ..#: [id number] Admission: 02/21/21 Attend Phys: Chiquis Joyner Discharge: Date of : 42 Report #: [id number] THIS REPORT FOR: cc: James Frances Adam J DO [facility],Medical Records Staff ~ For GI report, please see the Provation report in Perceptive 7 content. By: [id number] Records Staff DANNIE /ANT
[~2021-02-21 13:59] MED LIST changes: +BAYER CHEWABLE81 MG PO
[2021-02-21 14:05] VITALS: BP 111/85
[2021-02-21 15:44] LABS: ABSOLUTE BASOPHILS 0.1 thou/uL (0.0-0.2); ABSOLUTE LYMPHOCYTES 1.2 thou/uL (0.8-5.3); ABSOLUTE MONOCYTES 0.7 thou/uL (0.0-1.2); ABSOLUTE NEUTROPHILS 6.2 thou/uL (1.6-8.1); BASOPHILS 0.9 %; EOSINOPHILS 0.6 %; HEMOGLOBIN 9.1 gm/dL (12.0-15.0); MCH 25.2 pg (26.0-34.0); MCHC 30.3 g/dL (28.0-37.0); MPV 6.8 fl. (7.2-11.1); NUCLEATED RBCS 0 /100WBC; PLATELET COUNT* 445 thou/uL (150-400); POLYS 75.5 %; RBC 3.61 mil/uL (4.20-5.00); RDW-CV 20.1 % (10.5-14.5); WBC 8.2 thou/uL (4.0-11.0)
[2021-02-21 15:52] LABS: CALCIUM 8.7 mg/dL (8.5-10.1); CREATININE 0.9 mg/dL (0.6-1.3); POTASSIUM 4.2 mmol/L (3.5-5.1)
[2021-02-21 15:57] LABS: ALBUMIN 3.3 g/dL (3.4-5.0); TOTAL BILIRUBIN 0.2 mg/dL (<0.1-1.0); TOTAL PROTEIN 6.4 g/dL (6.4-8.2)
[2021-02-21] MEDS ORDERED: BAYER CHEWABLE81 MG PO (16:16)
[2021-02-21 16:54] LABS: PROTIME 10.5 Seconds (9.20-11.50)
[2021-02-21 17:17] LABS: URINE BILIRUBIN NEGATIVE (Negative); URINE BLOOD NEGATIVE (Negative); URINE CLARITY CLEAR; URINE COLOR YELLOW; URINE GLUCOSE-RANDOM NEGATIVE (Negative); URINE KETONES NEGATIVE (Negative); URINE LEUKOCYTES-REFLEX NEGATIVE (Negative); URINE NITRITE-REFLEX NEGATIVE (Negative); URINE PROTEIN NEGATIVE (Negative); URINE SPECIFIC GRAVITY <= 1.005 (1.005-1.030); URINE UROBILINOGEN 0.2 E.U./dl (0.2-1.0)
[2021-02-21 17:51] LABS: PLATELET ESTIMATE ADEQUATE; POLYCHROMASIA 1+
[2021-02-21 17:52] LABS: ANISOCYTOSIS 2+; HYPOCHROMASIA Occasional
[2021-02-21 20:00] VITALS: BP 125/39
[2021-02-22] VITALS (7 sets, daily range): BP systolic 113–157; BP diastolic 40–74
[2021-02-22 03:22] LABS: ABSOLUTE EOSINOPHILS 0.1 thou/uL (0.0-0.7); ABSOLUTE LYMPHOCYTES 1.5 thou/uL (0.8-5.3); ABSOLUTE MONOCYTES 0.6 thou/uL (0.0-1.2); ABSOLUTE NEUTROPHILS 4.3 thou/uL (1.6-8.1); BASOPHILS 0.7 %; EOSINOPHILS 2.2 %; HEMATOCRIT 24.4 % (37.0-47.0); HEMOGLOBIN 7.5 gm/dL (12.0-15.0); LYMPHOCYTES 22.8 %; MCH 25.2 pg (26.0-34.0); MCHC 30.8 g/dL (28.0-37.0); MCV 81.8 fL (80.0-100.0); MONOCYTES 8.6 %; MPV 6.9 fl. (7.2-11.1); NUCLEATED RBCS 0 /100WBC; PLATELET COUNT* 408 thou/uL (150-400); POLYS 65.7 %; RBC 2.98 mil/uL (4.20-5.00); RDW-CV 19.9 % (10.5-14.5); WBC 6.5 thou/uL (4.0-11.0)
[2021-02-22 04:12] LABS: ALBUMIN 2.6 g/dL (3.4-5.0); CALCIUM 7.8 mg/dL (8.5-10.1); CREATININE 0.9 mg/dL (0.6-1.3); POTASSIUM 3.6 mmol/L (3.5-5.1); TOTAL BILIRUBIN 0.2 mg/dL (<0.1-1.0); TOTAL PROTEIN 5.6 g/dL (6.4-8.2)
--- NOTE | 2021-02-22 11:23 | EKG ---
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 02/22/21 1123 1450 1450 Dean Herndon MD, [facility] /EPI
--- NOTE | 2021-02-22 15:08 | CON ---
[address] [address] CONSULTATION Name: NEELAMARIA R L Room: [address] IN M.R.#: [id number] Admission: 02/21/21 Attend Phys: Chiquis Joyner Discharge: Date of : 42 Report #: [id number] THIS REPORT FOR: cc: James Frances Adam J DO Namin, Farid M. MD ~ DATE OF CONSULTATION: 02/22/2021 Please note at the time of this dictation, the patient was seen and physically examined by myself. REASON FOR CONSULTATION: Acute anemia and melanotic stool. HISTORY OF PRESENT ILLNESS: This is a 80-year-old female who states since she got out of the hospital at the end of January after she had cardiac stents placed by Dr. Mercado, she has continued to have increased lightheadedness, black stools and generalized fatigue, which has gotten worse. She states she started noticing dark stools shortly after she got home and over the last 2 days, she has had increased lightheadedness nearly almost passing out. In looking at her hemoglobin when she was here in January, her hemoglobin was 12. On admission to the ER, she was 9.1 and down to 7.5 this morning. The patient has not had a bowel movement in the last 3 days. She states that she is feeling a little constipated. She also has noted that she has lost about 20 pounds since September. She said some of that has been stressed induced when she found out her was having an affair after 36 years of marriage and she has not been eating very well, which can be contributing to some of her weight loss and related stress. She also has been complaining of dysphagia for quite some time. Again, she had an EGD with Dr. Frances in 12/2019 that was normal. She was dilated. Recommended if she continued to have problems to have an EMS done, but she never got that completed. Last colonoscopy was done in 2018, showed diverticulosis in the sigmoid colon, otherwise normal. She had a small bowel capsule done at that time which was normal as well. ALLERGIES: CONTRAST DYE, LIDOCAINE, CARDIZEM, LOSARTAN, BYSTOLIC, LIDOCAINE AND ATORVASTATIN. MEDICATIONS: From home include verapamil, Zetia, Plavix, aspirin, omeprazole 20 mg, Claritin, Symbicort and Ventolin. PAST MEDICAL HISTORY: History of heart ablation in 2012, GERD, COPD, history of lung cancer. She has had a stent placed in her left subclavian artery, coronary artery disease, hyperlipidemia. PAST SURGICAL HISTORY: Cholecystectomy, hysterectomy, right elbow surgery, surgery on the back of her head and her stents, last one on 02/04/2021 [place] [address] CONSULTATION Name: NEELAMARIA R L Room: [address] IN [facility]#: [id number] Admission: 02/21/21 Attend Phys: Chiquis Joyner Discharge: Date of : 42 Report #: [id number] the left subclavian stent also placed secondary to a clot. FAMILY HISTORY: Negative for any GI or female cancers. SOCIAL HISTORY: Denies any alcohol, tobacco, or illegal drug use. REVIEW OF SYSTEMS: 12 point review of systems is essentially negative except what is mentioned in the HPI. PHYSICAL EXAMINATION: VITAL SIGNS: Temperature 36.8, pulse 77, respirations 12, blood pressure 134/50. HEART: Regular rate and rhythm. LUNGS: Diminished but clear. ABDOMEN: Soft, positive bowel sounds in all 4 quadrants with no masses or tenderness noted. LABORATORY DATA: Hemoglobin on admission was 9.1, she is down to 7.5. Again, 02/04, she was 12. White count is 6.5, platelets 408. GFR is 60. Total bilirubin 0.2, alkaline phosphatase 124, ALT 16, AST is 14. PT 10.5, INR 1. CT of the abdomen and pelvis shows absent gallbladder and uterus. Moderate retained stool throughout the colon and diverticulosis. IMPRESSION: 1. Melanotic stool. 2. Dysphagia. 3. Acute anemia. 4. Constipation. 5. Weight loss of 20 pounds since September. 6. Anticoagulant therapy, Plavix and aspirin, history of stents in January and left subclavian stent. 7. History of lung cancer back in 2010. PLAN: 1. EGD today with Dr. Harry. 2. Dulcolax suppository 20 mg once now. 3. Further recommendations to be made after the procedure has been performed. Thank you for allowing us to participate in this patient's care. Please do not hesitate to call with any questions regarding this consult. <ELECTRONICALLY SIGNED> By: Sohan Harry MD 02/22/21 1508 0749 [id number] Harry MD /nt
--- NOTE | 2021-02-22 16:35 | 2DMMODE ---
[place] [address] 2 D/M-MODE ECHOCARDIOGRAM Name: MARIA R KEITA Room: [address] IN [facility]#: [id number] Admission: 02/21/21 Attend Phys: Fer Chen Discharge: Date of : 42 Date of Service: 02/22/21 1635 Report #: [id number] THIS REPORT FOR: cc: James Frances Adam J DO Liston, Michael J. MD [facility] ~ APPROVED REPORT Study performed: 02/22/2021 12:02:05 EXAM: Comprehensive 2D, Doppler, and color-flow Echocardiogram Patient Location: In-Patient Room #: [facility] Status: routine BSA: 1.69 HR: 82 bpm BP: 128/74 mmHg Rhythm: NSR Other Information Study Quality: Good Indications CAD 2D Dimensions IVSd: 10.06 (7-11mm) LVOT Diam: 19.40 (18-24mm) LVDd: 42.52 mm PWd: 9.06 (7-11mm) Ascending Ao: 28.71 (22-36mm) LVDs: 28.60 (25-40mm) Aortic Root: 28.86 mm Volumes Left Atrial Volume (Systole) LA ESV Index: 31.40 mL/m2 Aortic Valve AoV Peak Usman.: 1.33 m/s AO Peak Gr.: 7.11 mmHg LVOT Max P.70 mmHg AO Mean Gr.: 4.19 mmHg LVOT Mean P.66 mmHg LVOT Max V: 0.82 m/s AO V2 VTI: 32.54 cm LVOT Mean V: 0.61 m/s ANGELA (VTI): 1.71 cm2 LVOT V1 VTI: 18.82 [place] [address] 2 D/M-MODE ECHOCARDIOGRAM Name: MARIA R KEITA Room: [address]#: [id number] Admission: 02/21/21 Attend Phys: Fer Chen Discharge: Date of : 42 Date of Service: 02/22/21 1635 Report #: [id number] Mitral Valve MV Decel. Time: 192.82 ms MV PHT: 55.92 ms MVA (PHT): 3.93 cm2 TDI Medial E' Usman.: 0.12 m/s Lateral E' Usman.: 0.08 m/s Pulmonary Valve PV Peak Usman.: 1.05 m/s PV Peak Gr.: 4.39 mmHg Tricuspid Valve RAP Estimate: 5.00 mmHg TR Peak Gr.: 40.24 mmHg RVSP: 45.00 mmHg PA Pressure: 45.00 mmHg Left Ventricle The left ventricle is normal size. Left ventricular systolic function preserved. There is left ventricular systolic dyssynergy consistent with underlying bundle branch block. There is normal left ventricular wall thickness. Left ventricular systolic function is normal. LVEF is 55-60%. Grade I - abnormal relaxation pattern. Right Ventricle The right ventricle is normal size. The right ventricular systolic function is normal. Atria The left atrium size is normal. The right atrium size is normal. Aortic Valve The aortic valve is normal in structure. No aortic regurgitation is present. There is no aortic valvular stenosis. Mitral Valve The mitral valve is normal in structure. Trace mitral regurgitation. No evidence of mitral valve stenosis. Tricuspid Valve The tricuspid valve is normal in structure. Trace tricuspid regurgitation. Moderate pulmonary hypertension. The RVSP is 45-50 mmHg[place] [address] 2 D/M-MODE ECHOCARDIOGRAM Name: MARIA R KEITA Room: [address]#: [id number] Admission: 02/21/21 Attend Phys: Fer Chen Discharge: Date of : 42 Date of Service: 02/22/21 1635 Report #: [id number] The pulmonary valve is normal in structure. There is no pulmonic valvular regurgitation. Great Vessels The aortic root is normal in size. IVC is normal in size and collapses >50% with inspiration. Pericardium There is no pericardial effusion. <Conclusion> The left ventricle is normal size. There is normal left ventricular wall thickness. Left ventricular systolic function is normal. LVEF is 55-60%. Grade I - abnormal relaxation pattern. Left ventricular systolic function preserved. There is left ventricular systolic dyssynergy consistent with underlying bundle branch block. Trace mitral regurgitation. Trace tricuspid regurgitation. Moderate pulmonary hypertension. The RVSP is 45-50 mmHg. IVC is normal in size and collapses >50% with inspiration. <ELECTRONICALLY SIGNED> By: Olegario Leal MD, FACC 02/22/21 1635 1635 1635 Olegario Leal MD, FACC /INF
[2021-02-23 00:26] VITALS: BP 124/48
[2021-02-23 04:04] LABS: HEMATOCRIT 22.2 % (37.0-47.0); MCH 25.6 pg (26.0-34.0); MCHC 31.6 g/dL (28.0-37.0); RBC 2.74 mil/uL (4.20-5.00); RDW-CV 19.6 % (10.5-14.5); WBC 6.6 thou/uL (4.0-11.0)
[2021-02-23 04:19] LABS: CREATININE 0.7 mg/dL (0.6-1.3); POTASSIUM 3.1 mmol/L (3.5-5.1)
[2021-02-23 04:26] VITALS: BP 112/36
[2021-02-23 07:55] VITALS: BP 145/60
[2021-02-23 15:29] LABS: % SATURATION 5 % (20-39); IRON 15 ug/dL (50-175)
[2021-02-23 16:00] VITALS: BP 104/34
[2021-02-23 16:39] LABS: HEMATOCRIT 26.8 % (37.0-47.0)
[2021-02-23 19:45] VITALS: BP 109/33
[2021-02-24] VITALS: BP 99/31
[2021-02-24 04:00] VITALS: BP 105/32
[2021-02-24 04:29] LABS: CALCIUM 7.9 mg/dL (8.5-10.1); CREATININE 0.7 mg/dL (0.6-1.3); POTASSIUM 3.2 mmol/L (3.5-5.1)
[2021-02-24 04:30] LABS: ABSOLUTE EOSINOPHILS 0.3 thou/uL (0.0-0.7); ABSOLUTE LYMPHOCYTES 1.4 thou/uL (0.8-5.3); ABSOLUTE MONOCYTES 0.5 thou/uL (0.0-1.2); ABSOLUTE NEUTROPHILS 3.4 thou/uL (1.6-8.1); BASOPHILS 0.5 %; EOSINOPHILS 4.8 %; HEMATOCRIT 22.4 % (37.0-47.0); LYMPHOCYTES 25.1 %; MCH 25.1 pg (26.0-34.0); MCHC 30.8 g/dL (28.0-37.0); MCV 81.3 fL (80.0-100.0); MPV 6.8 fl. (7.2-11.1); NUCLEATED RBCS 0 /100WBC; PLATELET COUNT* 345 thou/uL (150-400); POLYS 60.6 %; RBC 2.76 mil/uL (4.20-5.00); RDW-CV 19.8 % (10.5-14.5); WBC 5.7 thou/uL (4.0-11.0)
[2021-02-24 06:00] LABS: HEMOGLOBIN 6.9 gm/dL (12.0-15.0)
[2021-02-24 08:25] VITALS: BP 150/43
[2021-02-24 09:24] VITALS: BP 112/46; BP 137/41; BP 142/51; BP 155/59
[2021-02-24 16:03] LABS: HEMATOCRIT 34.9 % (37.0-47.0)
[2021-02-24 16:09] LABS: HEMOGLOBIN 10.7 gm/dL (12.0-15.0)
[2021-02-24 17:21] LABS: HEMATOCRIT 33.6 % (37.0-47.0); HEMOGLOBIN 10.4 gm/dL (12.0-15.0); MCH 25.7 pg (26.0-34.0); MCHC 30.8 g/dL (28.0-37.0); MCV 83.2 fL (80.0-100.0); MPV 6.9 fl. (7.2-11.1); RBC 4.04 mil/uL (4.20-5.00); RDW-CV 18.6 % (10.5-14.5); WBC 9.7 thou/uL (4.0-11.0)
[2021-02-24 17:24] VITALS: BP 144/50
[2021-02-24 19:45] VITALS: BP 157/70
[2021-02-25] VITALS: BP 121/43
[2021-02-25 04:00] VITALS: BP 157/58
[2021-02-25 04:04] LABS: HEMATOCRIT 26.5 % (37.0-47.0); HEMOGLOBIN 8.5 gm/dL (12.0-15.0); MCH 26.2 pg (26.0-34.0); MCV 81.9 fL (80.0-100.0); MPV 6.8 fl. (7.2-11.1); RBC 3.24 mil/uL (4.20-5.00); RDW-CV 18.6 % (10.5-14.5); WBC 5.9 thou/uL (4.0-11.0)
[2021-02-25 04:16] LABS: CALCIUM 8.2 mg/dL (8.5-10.1); CREATININE 0.7 mg/dL (0.6-1.3); POTASSIUM 3.3 mmol/L (3.5-5.1)
[2021-02-25 07:00] VITALS: BP 116/53
[2021-02-25 12:00] VITALS: BP 118/43
[2021-02-25 16:00] VITALS: BP 91/43
[2021-02-26 00:14] VITALS: BP 115/51
[2021-02-26 07:50] VITALS: BP 122/58
--- NOTE | 2021-02-26 09:41 | EKG ---
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: [email or web address] : 1940 Requested By: Marcelina Sykes Order Number: [id number] MD: Olegario Leal Measurements Intervals [place] Rate: 78 P: 90 IN: 221 QRS: -9 QRSD: 125 T: 73 QT: 436 QTc: 497 Interpretive Statements Sinus rhythm Prolonged IN interval Left bundle branch block Compared to ECG 02/21/2021 14:50:02 First degree AV block now present Electronically Signed On 02-26-2021 9:41:45 CDT by Olegario Leal [email or web address] <ELECTRONICALLY SIGNED> By: Olegario Leal MD, FAC 02/26/21 0941 0109 0109 Olegario Leal MD, [facility] /EPI
[2021-02-26 11:17] LABS: HEMATOCRIT 26.4 % (37.0-47.0); HEMOGLOBIN 8.4 gm/dL (12.0-15.0); MCH 26.3 pg (26.0-34.0); MCHC 31.7 g/dL (28.0-37.0); MPV 6.8 fl. (7.2-11.1); RBC 3.18 mil/uL (4.20-5.00); RDW-CV 19.8 % (10.5-14.5); WBC 7.1 thou/uL (4.0-11.0)
[2021-02-26 14:59] VITALS: BP 150/62
[2021-02-26 19:18] VITALS: BP 123/46
[2021-02-27 04:02] LABS: HEMATOCRIT 29.1 % (37.0-47.0); MCH 25.6 pg (26.0-34.0); MCHC 30.8 g/dL (28.0-37.0); MCV 83.2 fL (80.0-100.0); MPV 6.9 fl. (7.2-11.1); NUCLEATED RBCS 1 /100WBC; PLATELET COUNT* 336 thou/uL (150-400); RBC 3.49 mil/uL (4.20-5.00); RDW-CV 19.6 % (10.5-14.5); WBC 7.5 thou/uL (4.0-11.0)
[2021-02-27 04:09] VITALS: BP 132/47
[2021-02-27 04:13] LABS: CALCIUM 8.9 mg/dL (8.5-10.1); CREATININE 0.7 mg/dL (0.6-1.3); POTASSIUM 4.2 mmol/L (3.5-5.1)
[2021-02-27 06:08] LABS: ABSOLUTE LYMPHOCYTES 0.5 thou/uL (0.8-5.3); ABSOLUTE MONOCYTES 0.2 thou/uL (0.0-1.2); ABSOLUTE NEUTROPHILS 6.8 thou/uL (1.6-8.1); PLATELET ESTIMATE ADEQUATE; TOXIC GRANULATION 1+
[2021-02-27 06:09] LABS: ANISOCYTOSIS 1+; HYPOCHROMASIA 1+; MACROCYTES Occasional; OVALOCYTES Occasional; POIKILOCYTOSIS 1+; SCHISTOCYTES Occasional
[2021-02-27 08:00] VITALS: BP 142/60
[2021-02-27 12:45] VITALS: BP 157/57
[2021-02-27 16:00] VITALS: BP 129/53
[2021-02-27 21:22] VITALS: BP 136/53
[2021-02-28] VITALS: BP 120/46
[2021-02-28 04:00] VITALS: BP 136/43
[2021-02-28 04:22] LABS: ABSOLUTE LYMPHOCYTES 0.8 thou/uL (0.8-5.3); ABSOLUTE MONOCYTES 0.7 thou/uL (0.0-1.2); ABSOLUTE NEUTROPHILS 7.4 thou/uL (1.6-8.1); BASOPHILS 0.3 %; HEMATOCRIT 24.1 % (37.0-47.0); HEMOGLOBIN 7.6 gm/dL (12.0-15.0); LYMPHOCYTES 9.2 %; MCH 26.2 pg (26.0-34.0); MCHC 31.3 g/dL (28.0-37.0); MCV 83.6 fL (80.0-100.0); MONOCYTES 7.5 %; MPV 7.3 fl. (7.2-11.1); NUCLEATED RBCS 1 /100WBC; PLATELET COUNT* 316 thou/uL (150-400); RBC 2.88 mil/uL (4.20-5.00); RDW-CV 19.9 % (10.5-14.5); WBC 8.9 thou/uL (4.0-11.0)
[2021-02-28 04:45] LABS: CALCIUM 8.6 mg/dL (8.5-10.1); CREATININE 0.8 mg/dL (0.6-1.3); POTASSIUM 3.5 mmol/L (3.5-5.1)
[2021-02-28 07:38] VITALS: BP 148/43
[2021-02-28 11:06] VITALS: BP 148/43
[2021-02-28 16:00] VITALS: BP 124/54
[2021-02-28 16:52] LABS: ABSOLUTE BASOPHILS 0.1 thou/uL (0.0-0.2); ABSOLUTE EOSINOPHILS 0.2 thou/uL (0.0-0.7); ABSOLUTE LYMPHOCYTES 1.7 thou/uL (0.8-5.3); ABSOLUTE MONOCYTES 0.8 thou/uL (0.0-1.2); ABSOLUTE NEUTROPHILS 6.8 thou/uL (1.6-8.1); HEMATOCRIT 27.5 % (37.0-47.0); HEMOGLOBIN 8.4 gm/dL (12.0-15.0); MCH 26.2 pg (26.0-34.0); MCHC 30.6 g/dL (28.0-37.0); MCV 85.7 fL (80.0-100.0); MONOCYTES 8.6 %; MPV 6.9 fl. (7.2-11.1); NUCLEATED RBCS 0 /100WBC; PLATELET COUNT* 367 thou/uL (150-400); POLYS 70.4 %; RBC 3.21 mil/uL (4.20-5.00); RDW-CV 20.5 % (10.5-14.5); WBC 9.7 thou/uL (4.0-11.0)
[2021-02-28 17:15] LABS: CALCIUM 8.7 mg/dL (8.5-10.1); CREATININE 0.8 mg/dL (0.6-1.3); POTASSIUM 3.9 mmol/L (3.5-5.1)
[2021-02-28 18:46] LABS: PROTIME 10.7 Seconds (9.20-11.50)
[2021-02-28 20:34] VITALS: BP 136/48
[2021-03-01] VITALS: BP 104/40
[2021-03-01 04:00] VITALS: BP 126/43
[2021-03-01 05:01] LABS: ABSOLUTE BASOPHILS 0.1 thou/uL (0.0-0.2); ABSOLUTE EOSINOPHILS 0.2 thou/uL (0.0-0.7); ABSOLUTE LYMPHOCYTES 1.4 thou/uL (0.8-5.3); ABSOLUTE MONOCYTES 0.4 thou/uL (0.0-1.2); ABSOLUTE NEUTROPHILS 3.4 thou/uL (1.6-8.1); EOSINOPHILS 4.1 %; HEMATOCRIT 23.7 % (37.0-47.0); HEMOGLOBIN 7.4 gm/dL (12.0-15.0); LYMPHOCYTES 25.2 %; MCH 26.4 pg (26.0-34.0); MCHC 31.1 g/dL (28.0-37.0); MCV 84.9 fL (80.0-100.0); MPV 7.2 fl. (7.2-11.1); NUCLEATED RBCS 1 /100WBC; PLATELET COUNT* 301 thou/uL (150-400); POLYS 61.7 %; RBC 2.79 mil/uL (4.20-5.00); RDW-CV 20.4 % (10.5-14.5); WBC 5.5 thou/uL (4.0-11.0)
[2021-03-01 05:13] LABS: CREATININE 0.7 mg/dL (0.6-1.3); POTASSIUM 3.8 mmol/L (3.5-5.1)
[2021-03-01 05:19] VITALS: BP 126/43
[2021-03-01 12:00] VITALS: BP 130/49
[2021-03-01 16:00] VITALS: BP 315/58
[2021-03-01 18:22] LABS: HEMATOCRIT 26.9 % (37.0-47.0); HEMOGLOBIN 8.4 gm/dL (12.0-15.0)
[2021-03-01 18:34] LABS: CALCIUM 8.5 mg/dL (8.5-10.1); CREATININE 0.7 mg/dL (0.6-1.3); POTASSIUM 3.7 mmol/L (3.5-5.1)
[2021-03-01 20:00] VITALS: BP 111/45
[2021-03-02 00:08] VITALS: BP 107/35
[2021-03-02 03:51] LABS: ABSOLUTE BASOPHILS 0.1 thou/uL (0.0-0.2); ABSOLUTE EOSINOPHILS 0.3 thou/uL (0.0-0.7); ABSOLUTE LYMPHOCYTES 1.2 thou/uL (0.8-5.3); ABSOLUTE MONOCYTES 0.5 thou/uL (0.0-1.2); ABSOLUTE NEUTROPHILS 4.2 thou/uL (1.6-8.1); BASOPHILS 1.1 %; EOSINOPHILS 5.4 %; HEMATOCRIT 24.1 % (37.0-47.0); HEMOGLOBIN 7.6 gm/dL (12.0-15.0); MCH 26.9 pg (26.0-34.0); MCHC 31.4 g/dL (28.0-37.0); MCV 85.5 fL (80.0-100.0); MONOCYTES 7.5 %; MPV 6.8 fl. (7.2-11.1); NUCLEATED RBCS 0 /100WBC; PLATELET COUNT* 307 thou/uL (150-400); RBC 2.82 mil/uL (4.20-5.00); RDW-CV 21.5 % (10.5-14.5); WBC 6.3 thou/uL (4.0-11.0)
[2021-03-02 03:56] LABS: CALCIUM 8.1 mg/dL (8.5-10.1); CREATININE 0.7 mg/dL (0.6-1.3)
[2021-03-02 04:35] VITALS: BP 109/50
[2021-03-02 06:16] LABS: ANISOCYTOSIS 2+; PLATELET ESTIMATE ADEQUATE
[2021-03-02 08:00] VITALS: BP 113/47
[2021-03-02 12:00] VITALS: BP 125/52
[2021-03-02 13:11] VITALS: BP 148/43
[2021-03-02 15:58] VITALS: BP 148/43
== END 2021-03-02 15:50 | disposition home or self-care (01) | DRG 378 ==
LOC: M.ERS 13:59 → M.2W 15:57 → M.TBA-ER 15:57 → M.2W 02-22 09:55
PROVIDERS: Family Medicine; Internal Medicine; Internal Medicine Gastroenterology; Nurse Practitioner Adult Health; Nurse Practitioner Family; Registered Nurse; ADMIT Internal Medicine; ATTEND Internal Medicine
DX: K55.21 Angiodysplasia of colon with hemorrhage (principal); E44.0 Moderate protein-calorie malnutrition; I99.8 Other disorder of circulatory system; K21.9 Gastro-esophageal reflux disease without esophagitis; I25.10 Atherosclerotic heart disease of native coronary artery without angina pectoris; E78.5 Hyperlipidemia, unspecified; J44.9 Chronic obstructive pulmonary disease, unspecified; D64.9 Anemia, unspecified; K57.30 Diverticulosis of large intestine without perforation or abscess without bleeding; K59.00 Constipation, unspecified; R63.4 Abnormal weight loss; I10 Essential (primary) hypertension; I73.9 Peripheral vascular disease, unspecified; D12.4 Benign neoplasm of descending colon; E87.6 Hypokalemia; K64.4 Residual hemorrhoidal skin tags; Z20.822 Contact with and (suspected) exposure to COVID-19; Z85.118 Personal history of other malignant neoplasm of bronchus and lung; Z79.899 Other long term (current) drug therapy; Z79.82 Long term (current) use of aspirin; Z88.8 Allergy status to other drugs, medicaments and biological substances; Z88.1 Allergy status to other antibiotic agents; Z91.041 Radiographic dye allergy status; Z90.710 Acquired absence of both cervix and uterus; Z68.26 Body mass index [BMI] 26.0-26.9, adult; Z95.5 Presence of coronary angioplasty implant and graft; Z90.49 Acquired absence of other specified parts of digestive tract

== ENCOUNTER 2021-08-23 14:19 | Emergency (ER) | payer OTHER ==
[~2021-08-23] VITALS: Ht 160 cm; Wt 59.0 kg
[2021-08-23] MEDS ORDERED: XOPENEX0.31 MG/3 INH (14:38)
[2021-08-23] MEDS ORDERED: PLAVIX 75 MG TA75 MG PO (14:40)
[2021-08-23] MEDS ORDERED: VENTOLIN HFA 1818 GM INH (14:40)
[2021-08-23] MEDS ORDERED: ZETIA10 MG PO (14:40)
[2021-08-23] MEDS ORDERED: BREO ELLIPTA 11 EACH INH (14:41)
[2021-08-23 14:51] LABS: HEMATOCRIT 41.1 % (37.0-47.0); HEMOGLOBIN 13.1 gm/dL (12.0-15.0); MCH 26.4 pg (26.0-34.0); MCHC 31.8 g/dL (28.0-37.0); MCV 83.2 fL (80.0-100.0); MPV 7.3 fl. (7.2-11.1); NUCLEATED RBCS 0 /100WBC; PLATELET COUNT* 327 thou/uL (150-400); RBC 4.94 mil/uL (4.20-5.00); RDW-CV 23.5 % (10.5-14.5); WBC 8.1 thou/uL (4.0-11.0)
[2021-08-23 14:58] LABS: CREATININE 0.9 mg/dL (0.6-1.3); POTASSIUM 3.7 mmol/L (3.5-5.1)
[2021-08-23 15:08] LABS: ALBUMIN 3.4 g/dL (3.4-5.0); TOTAL BILIRUBIN 0.3 mg/dL (<0.1-1.0)
[2021-08-23 15:45] LABS: ABSOLUTE EOSINOPHILS 0.1 thou/uL (0.0-0.7); ABSOLUTE LYMPHOCYTES 1.4 thou/uL (0.8-5.3); ABSOLUTE MONOCYTES 0.4 thou/uL (0.0-1.2); ABSOLUTE NEUTROPHILS 6.2 thou/uL (1.6-8.1); LARGE PLATELETS OCCASIONAL; PLATELET ESTIMATE ADEQUATE
--- NOTE | 2021-08-23 15:55 | EKG ---
[place] [address] ELECTROCARDIOGRAM REPORT Name: MARIA R KEITA Room: [employer]#: [id number] Admission: 08/23/21 Attend Phys: Discharge: Date of : 42 Date of Service: 08/23/21 1428 Report #: [id number] THIS REPORT FOR: //name// [facility] ED Test Date: 2021-08-23 Test Time: 14:28:44 Pat Name: MARIA R KEITA Department: Room: Gender: Travel Med Surg Rn: GRANT : 1940 Requested By: Ti Keane Order Number: [id number] MD: Dean Hrendon Measurements Intervals [place] Rate: 147 P: 0 DE: 47 QRS: 14 QRSD: 123 T: 93 QT: 347 QTc: 543 Interpretive Statements sinus tachycardia LBBB Compared to ECG 02/26/2021 01:09:28 Sinus rhythm no longer present First degree AV block no longer present Electronically Signed On 08-23-2021 15:54:45 SURVEY COMPILER by Dean Herndon [email or web address] <ELECTRONICALLY SIGNED> By: Dean Herndon MD, [facility] 08/23/21 1554 1428 1428 Dean Herndon MD, [facility] /EPI
[2021-08-23] MEDS ORDERED: PROTONIX40 M4 PO (16:16)
[2021-08-23] MEDS ORDERED: CARAFATE 1 GM TA1 G1 PO (16:16)
[2021-08-23 16:24] VITALS: BP 124/96
== END 2021-08-23 16:26 | disposition home or self-care (01) ==
LOC: M.ERS 14:19
PROVIDERS: Family Medicine
DX: R10.9 Unspecified abdominal pain (principal); R00.0 Tachycardia, unspecified; R19.7 Diarrhea, unspecified; R07.89 Other chest pain; J44.9 Chronic obstructive pulmonary disease, unspecified; I25.10 Atherosclerotic heart disease of native coronary artery without angina pectoris; E78.5 Hyperlipidemia, unspecified; K21.9 Gastro-esophageal reflux disease without esophagitis; Z85.118 Personal history of other malignant neoplasm of bronchus and lung; Z90.49 Acquired absence of other specified parts of digestive tract; Z98.890 Other specified postprocedural states; Z90.710 Acquired absence of both cervix and uterus; Z79.899 Other long term (current) drug therapy; Z88.8 Allergy status to other drugs, medicaments and biological substances; Z91.041 Radiographic dye allergy status; Z88.4 Allergy status to anesthetic agent